=== PATIENT | female | born 1940 | race Caucasian/White ===

== ENCOUNTER 2025-01-30 14:14 | Inpatient (IN) | payer MEDICARE, SELFPAY ==
[2025-01-30] VITALS (15 sets, daily range): BP systolic 124–155; BP diastolic 71–89; PULSE 67–92; RESP 16–22; TEMP 36–36.6; O2SAT 88–98; BMI 24.8
--- NOTE | 2025-01-30 15:42 | CT_ITS ---
PROCEDURE: CTA CHEST W/WO CONTRAST 01/30/2025 REASON FOR EXAM: HYPOXIA AND DYSPNEA TECHNIQUE: CTA imaging of the chest with intravenous contrast. Coronal and Sagittal reconstruction series were provided. 3D, 3D post processing, 3D reconstructions, Maximum intensity projection (MIPs) Volume rendering and Shaded surface rendering was provided. One or more dose reduction techniques were used (e.g., Automated exposure control, adjustment of the mA and/or kV according to patient size, use of iterative reconstruction technique). COMPARISON: None FINDINGS: Heart size is toward the upper limits of normal. Mild LAD coronary artery calcifications. No significant pericardial effusion. Calcified nonaneurysmal thoracic aorta without dissection. Prominent central pulmonary artery which can be seen with pulmonary hypertension. No pulmonary artery filling defects. No bulky adenopathy. Large cystic lesion in the liver measuring at least 14.7 x 11.0 x 13.8 cm. Mild abdominal ascites. Elevated right hemidiaphragm. Heterogeneous multinodular right thyroid lobe. Central airways are patent. Large right pleural effusion with adjacent atelectasis. Small left pleural effusion with adjacent atelectasis. No pulmonary mass. No acute osseous abnormality. CT/CTA Chest W/WO Contrast IMPRESSION: 1. Negative for pulmonary embolism. 2. Large right and small left pleural effusions with adjacent atelectasis. 3. Borderline cardiomegaly. Coronary artery calcifications. 4. Prominent pulmonary artery which can be seen with pulmonary hypertension. 5. Large right hepatic cyst. Further assessment with nonemergent MRI is recomm ended given the lesions size. 6. Heterogeneous multinodular right thyroid lobe. Recommend further assessment with nonemergent ultrasound. 7. Mild upper abdominal ascites. Reading Location: [facility]
[2025-01-30 15:57] LABS: Absolute Lymphocyte Count 1.43 X10^3/uL (0.83-4.51); Absolute Neutrophil Count 5.9 X10^3/uL (2.0-7.7); Basophil# 0.06 X10^3/uL; Basophil% 0.7 % (0-1); Eosinophil# 0.07 X10^3/uL; Eosinophils% 0.8 % (0-5); Hematocrit 34.2 % (37-47); Lymphocyte # 1.43 X10^3/ul (0.83-4.51); Lymphocyte % 16.8 % (19-41); Mean Corp Hgb Conc 32.2 g/dL (32-36); Mean Corpuscular Hgb 26.4 pg (27.0-32.0); Mean Platelet Vol. 9.4 fl (6.2-12.0); Monocyte# 1.05 X10^3/uL; Monocyte% 12.3 % (0-10); NRBC Flagged by Analyzer 0 % (0-5); Neutrophil # 5.86 X10^3/uL (2.7-7.7); Neutrophil % 68.7 % (47-70); Platelet Count 334 K/mm3 (150-450); RBC Distribution Width CV 16.5 % (11.6-14.6); RBC Distribution Width SD 49.2 fl (35.1-43.9); Red Blood Count 4.17 M/mm3 (4.2-5.4); White Blood Count 8.5 K/mm3 (4.4-11.0)
[2025-01-30 16:17] LABS: D-Dimer Quantitative (DVT/PE) 3.43 FEU/ug/m (0.27-0.49)
[2025-01-30 16:21] LABS: Anion Gap 12 (5-15); BUN 15 mg/dL (4-19); BUN/Creat Ratio 17.2 RATIO (10-20); Calcium,Total 8.5 mg/dL (7.6-11.0); Carbon Dioxide 26.2 mmol/L (21.0-32.0); Chloride 103 mmol/L (98-108); Creatinine, Serum 0.85 mg/dL (0.70-1.20); EST Glomerular Filtration Rate 68 (>60); Glucose 126 mg/dL (70-99); Potassium 3.5 mmol/L (3.3-5.1); Sodium Level 141 mmol/L (133-145); Troponin T High Sensitivity 22 ng/L (<=14)
[2025-01-30 16:36] LABS: Pro- Brain NATRIURETIC PEPTIDE 629 pg/mL (<=1800)
--- NOTE | 2025-01-30 16:52 | ED.VIS.DYS ---
HPI History of Present Illness Chief Complaint: Shortness of Breath Informant: patient Onset/Context/Timing Onset: Weeks (Shortness of breath for 2 weeks. Worse with exertion.) Context: gradual Timing: Continuous Quality: Positive for Dyspnea on exertion Current Severity: Moderate Maximum Severity: Moderate Worsened by: Exertion Relieved by: Oxygen Associated Symptoms Negative for cough Chest Pain: Positive for None Narrative Narrative: 84-year-old female history of stroke in October she was hospitalized for 4 days. No history of COPD, asthma, CHF or DVT or PE. States she has been short of breath for the last 2 weeks worse with exertion. She presents hypoxia with a pulse ox of 80%. She denies any chest pain or fever. No significant cough. No leg pain or swelling. No calf pain. She was being seen by GI for a reported liver cyst that is pushing up on her right diaphragm in the center of the emergency department due to her hypoxia. PE Risk Factors: Negative for Cancer, OCP + Smoking + > 35, Prior DVT or PE, Recent immobilization, Recent surgery or Recent travel Prior similar symptoms: No Recent Illness/Hospitalization: No (Last hospitalization was at the end of October. 2-3 months ago.) [facility] Medical History Multinodular goiter Thyrotoxicosis CVA (cerebral vascular accident) Glaucoma Home Medications ?Medication ?Instructions ?Recorded ?Last Taken ?Type aspirin 81 mg tablet,delayed 81 mg PO QDAY 11/07/24 01/30/25 History release (Adult Low Dose Aspirin) cetirizine 10 mg tablet 10 mg PO QDAY PRN allergies 11/07/24 01/30/25 History clopidogrel 75 mg tablet 75 mg PO QDAY 11/07/24 01/30/25 History rosuvastatin 10 mg tablet 10 mg PO QHS 11/07/24 01/29/25 History methimazole 10 mg tablet 10 mg PO QDAY #90 tabs 01/09/25 01/30/25 Rx amlodipine 10 mg tablet 10 mg PO DAILY 01/30/25 01/30/25 History metoprolol tartrate 50 mg tablet 50 mg PO DAILY 01/30/25 01/30/25 History travoprost 0.004 % eye drops 1 drp ophthalmic (eye) DAILY 01/30/25 01/29/25 History Allergy/AdvReac Type Severity Reaction Status Date / Time Sulfa (Sulfonamide Allergy Mild hives Verified 01/30/25 14:16 Antibiotics) Family History Other Brain tumor Colon cancer Surgical History History of thyroid surgery H/O: hysterectomy Social History household members: spouse housing: house Smoking Status: Never smoker alcohol intake: never substance use type: does not use what type of physical activity do you participate in: walking frequency: daily ROS ROS ED ROS Narrative Denies recent illness. Shortness of breath worse with exertion. No cough or fever. No chest pain. Constitutional Constitutional ED: Denies chills or fever(s) Eyes Eyes: Denies blurry vision ENT ENT ED: Denies ear pain Cardiovascular Cardiovascular: Denies chest pain, palpitations or racing heartbeat Respiratory/Chest Respiratory/Chest: Reports dyspnea and dyspnea on exertion; Denies cough Gastrointestinal Gastrointestinal: Denies abdominal pain Genitourinary Genitourinary ED: Denies dysuria or hematuria Musculoskeletal Musculoskeletal: Denies arthralgias or back pain Integumentary Denies abscess Neurologic Neurologic: Denies headache(s) Psychiatric Psychiatric: Denies anxiety Endocrine Endocrinology: Denies cold intolerance Hematologic/Lymphatic Hematologic/Lymphatic: Denies easy bleeding, easy bruising or lymphadenopathy Allergic/Immunologic Allergic/Immunologic ED: Denies mouth swelling, tongue swelling or urticaria EXAM Physical Exam Narrative Exam Narrative: Well-appearing 84-year-old female sitting upright in bed. She is hypoxic at 88% on room air with a good waveform. No distress otherwise. Daughter and are at bedside. H EENT exam pupils round react light. Motions are intact. Moist mucous membranes. Neck nontender no JVD. No lymphadenopathy. Lungs clear to auscultation bilaterally. Heart regular rhythm rate about 85-90 no murmur. Chest wall ribs nontender. Abdomen soft nontender. No peritoneal signs. Moving all 4 extremities. Nontender no edema. Calves nontender. No cords. Normal strength. Normal range of motion. Neurologically she is awake alert. Answering questions and following commands. Very benign exam. Const Vital Signs: 01/30/25 14:16 01/30/25 14:24 01/30/25 15:02 Temperature 97.6 F L Temperature Source Temporal Pulse Rate 92 87 Respiratory Rate 22 H 18 Respiratory Effort Respiratory Depth Respiratory Pattern Blood Pressure 124/71 H 155/89 H Blood Pressure Mean 88 111 Pulse Ox 88 93 98 Oxygen Delivery Method Room Air Nasal Cannula Oxygen Flow Rate (L/min) 3 01/30/25 15:02 01/30/25 15:30 01/30/25 15:43 Temperature Temperature Source Pulse Rate 67 Respiratory Rate 18 Respiratory Effort Normal Short of Breath Respiratory Depth Normal Respiratory Pattern Normal Blood Pressure 143/81 H Blood Pressure Mean 101 Pulse Ox 93 Oxygen Delivery Method Nasal Cannula Nasal Cannula Nasal Cannula Oxygen Flow Rate (L/min) 2 2 2 01/30/25 16:00 01/30/25 16:30 Temperature Temperature Source Pulse Rate 78 71 Respiratory Rate 20 H 20 H Respiratory Effort Respiratory Depth Respiratory Pattern Blood Pressure 135/80 H 147/74 H Blood Pressure Mean 98 98 Pulse Ox 93 93 Oxygen Delivery Method Nasal Cannula Nasal Cannula Oxygen Flow Rate (L/min) 2 2 Positive well nourished and well developed; Negative for obese, cachectic, contractures or unkempt General Appearance ED: well developed and NAD; Negative for unkempt, cachectic, contractures or pallor Nutritional Appearance: Negative for cachectic or obese HEENT Reports moist mucous membranes atraumatic; Negative for trauma or tenderness Eyes PERRL and EOMs intact bilaterally General Eye ED: Negative for pale conjunctiva or scleral icterus Neck no lymphadenopathy, supple and no meningeal signs General: Negative for tenderness Lymph Lymphatic: Negative for other Resp normal respiratory effort and clear to auscultation bilaterally Effort and Inspection: Negative for pain with movement Auscultation: Negative for rales, rhonchi, wheezes or diminished lung sounds Cardio regular rate, regular rhythm, S1 normal heart sound, S2 normal heart sound and no murmurs Rate: Negative for bradycardia or tachycardic Rhythm: Negative for abnormal rhythm GI non-tender, non-distended and no masses Auscultation: normoactive bowel sounds Palpation: soft; Negative for tender, guarding, mass or rebound tenderness present Back/Spine no CVA tenderness and normal to inspection General Back: Negative for CVA tenderness Extremity normal to inspection General Extremety ED: Negative for edema or tenderness General Extremity: Negative for edema Neuro oriented x3 and CN's II-XII intact bilaterally Sensorium / Orientation: alert, oriented to person, oriented to place and oriented to time; Negative for orientation impaired, confused or lethargic Speech: speech normal Motor Exam: strength 5/5 throughout Psych mental status grossly normal Appearance: Negative for unkempt Attitude: No agitated Mood & Affect: Negative for depressed or anxious Thought Process: No normal thought process Skin no wounds and skin turgor normal General Skin Exam: Negative for jaundice or pallor Lesions: no lesions Rashes: no rashes Trauma: Negative for abrasion or laceration MDM MDM MDM Narrative Medical decision making narrative: 9-year-old female hypoxic sent in for further evaluation. Could be CHF could be a pulmonary emboli or pneumonia versus other etiologies. CAT scan of the chest and labs are being obtained. History & Record Review Discussion w/independent historian: Patient and Family Additional record(s) reviewed:: No prior records Lab Data Attestation: I reviewed the patient's lab results. Lab results narrative: CBC shows a white count 8.5. H&H 11.0 and 34. Platelets 334. Electrolytes show sodium 141. Gap 12. Normal BUN 15 creatinine 0.8. Glucose 126. Troponin 22. BNP 629. No prior labs available for comparison. Chest x-ray 2 views shows an elevated right hemidiaphragm. Bilateral pleural effusions. Cannot rule out pneumonia. Labs: Laboratory Results - last 24 hr 01/30/25 14:48 WBC 8.5 RBC 4.17 L Hgb 11.0 L Hct 34.2 L MCV 82.0 MCH 26.4 L MCHC 32.2 RDW Std Deviation 49.2 H RDW Coeff of Jacquie 16.5 H Plt Count 334 MPV 9.4 Immature Gran % (Auto) 0.700 Neut % (Auto) 68.7 Lymph % (Auto) 16.8 L [place] % (Auto) 12.3 H Eos % (Auto) 0.8 Baso % (Auto) 0.7 Absolute Neuts (auto) 5.9 Absolute Lymphs (auto) 1.43 Nucleated RBC % 0 D-Dimer Quant (PE/DVT) 3.43 H* Sodium 141 Potassium 3.5 Chloride 103 Carbon Dioxide 26.2 Anion Gap 12 BUN 15 Creatinine 0.85 Est GFR (MDRD) Non-Af 68 BUN/Creatinine Ratio 17.2 Glucose 126 H Calcium 8.5 Troponin T High Sens 22 H NT pro BNP II 629 Radiography Chest X-Ray - ED: 2 View, Read by ED Physician, Read by Radiologist, Heart, Lungs, Mediastinum, Bony Structures, Chronic Changes, Right Effusion, Left Effusion and - (Elevated right hemidiaphragm.) Diagnostic Testing: Clinical Impression(s) from Imaging Studies Chest CTA 01/30/25 15:42 IMPRESSION: 1. Negative for pulmonary embolism. 2. Large right and small left pleural effusions with adjacent atelectasis. 3. Borderline cardiomegaly. Coronary artery calcifications. 4. Prominent pulmonary artery which can be seen with pulmonary hypertension. 5. Large right hepatic cyst. Further assessment with nonemergent MRI is recommended given the lesions size. 6. Heterogeneous multinodular right thyroid lobe. Recommend further assessment with nonemergent ultrasound. 7. Mild upper abdominal ascites. [facility] Chest x-ray done earlier in the day. She has an elevated right hemidiaphragm. Small bilateral pleural effusions. Cannot rule out infiltrates. Interpreted both by myself and the radiologist. 2 views. Rhythm Strip Rhythm Strip: Sinus Rhythm Rate: 89 Ectopy: PAC(s) EKG Initial EKG: Attestation: I personally reviewed and interpreted this EKG as follows: Interpretation: Sinus Rhythm and No Acute Injury Pattern Comments: Normal sinus rhythm rate 89. Few PACs. No acute signs of DE. Mild ST depression in the lateral leads. No prior available. Prior EKG tracings: not available for review Discharge Plan Triage Chief Complaint: Shortness of Breath ED Provider: Will Jaimes Dx/Rx/DC Orders Prescriptions: No Action clopidogrel 75 mg tablet 75 mg PO QDAY cetirizine 10 mg tablet 10 mg PO QDAY PRN (Reason: allergies) rosuvastatin 10 mg tablet 10 mg PO QHS aspirin [Adult Low Dose Aspirin] 81 mg tablet,delayed release (DR/EC) 81 mg PO QDAY methimazole 10 mg tablet 10 mg PO QDAY Qty: 90 2RF travoprost 0.004 % drops 1 drp ophthalmic (eye) DAILY Patient Comments: [NO ORIGINAL SIG] Rx Instructions: PM amlodipine 10 mg tablet 10 mg PO DAILY metoprolol tartrate 50 mg tablet 50 mg PO DAILY Patient Comments: [NO ORIGINAL SIG] Primary Care Provider: Fidel Davila Referrals: Fidel Davila MD [Primary Care Provider] - Print Language: Maltese
--- NOTE | 2025-01-30 17:54 | PCM.HP.STD ---
HPI - General General Date of Admission: 01/30/25 Date of Service: 01/30/25 Chief Complaint: Shortness of breath and hypoxia HPI Narrative SAPNA SAUCEDO, is a 84-year-old female with a history of CVA, hypertension, thyrotoxicosis with multinodular goiter who presented to [facility] ED 01/30/2025 with increased shortness of breath for the past 2 weeks which has been worse with exertion. Patient is being worked up for right hepatic cyst that is pushing on her diaphragm and it was assumed that this was the reason for her shortness of breath however today she was hypoxic at the GI office so she was sent to the ED. Patient was 88% on presentation and placed on 2 L of O2, hemoglobin of 11, D-dimer of 3.43 and BMP fairly unremarkable, proBNP 629 with a Trop of 22. CTA obtained with no PE but large right and small left pleural effusions with adjacent atelectasis and prominent pulmonary artery possibly due to pulmonary hypertension. Given patient's hypoxia and effusions hospitalist contacted for admission. Patient evaluated family members at bedside, she notes that she had a stroke in October and was having some difficulty with speech which prompted an ultrasound of her thyroid even though she has had her thyroid removed, this revealed toxic multinodular goiter and she was referred to endocrinology. Aside from that she has been worked up for a hepatic cyst with the next step being MRI to decide on drainage versus surgery but has not had this completed yet. Does endorse increased shortness of breath for the past 2 weeks with no productive cough or chest pain, no abdominal pain or swelling, has had a little bit of swelling in her lower extremities mostly in the evening over the past week or so, no fevers or chills. [facility] Medical History Multinodular goiter Thyrotoxicosis CVA (cerebral vascular accident) Glaucoma Home Medications ?Medication ?Instructions ?Recorded ?Last Taken ?Type aspirin 81 mg tablet,delayed 81 mg PO QDAY 11/07/24 01/30/25 History release (Adult Low Dose Aspirin) cetirizine 10 mg tablet 10 mg PO QDAY PRN allergies 11/07/24 01/30/25 History clopidogrel 75 mg tablet 75 mg PO QDAY 11/07/24 01/30/25 History rosuvastatin 10 mg tablet 10 mg PO QHS 11/07/24 01/29/25 History methimazole 10 mg tablet 10 mg PO QDAY #90 tabs 01/09/25 01/30/25 Rx amlodipine 10 mg tablet 10 mg PO DAILY 01/30/25 01/30/25 History metoprolol tartrate 50 mg tablet 50 mg PO DAILY 01/30/25 01/30/25 History travoprost 0.004 % eye drops 1 drp ophthalmic (eye) DAILY 01/30/25 01/29/25 History Allergy/AdvReac Type Severity Reaction Status Date / Time Sulfa (Sulfonamide Allergy Mild hives Verified 01/30/25 14:16 Antibiotics) Family History Other Brain tumor Colon cancer Surgical History History of thyroid surgery H/O: hysterectomy Social History household members: spouse housing: house Smoking Status: Never smoker alcohol intake: never substance use type: does not use what type of physical activity do you participate in: walking frequency: daily ROS ROS Narrative General: Denies fever/chills HENT: Denies headache, denies stuffy nose, denies sore throat EYES: Denies changes in vision Resp: Denies cough, increased shortness of breath particularly on exertion over the past couple of weeks Cardiac: Denies chest pain GI: Denies abdominal pain, denies changes in bowel, denies nausea/vomiting : Denies changes in urination Extremity: Some swelling lower extremities mostly in the evening the past week or so MSK: Denies weakness Neuro: Denies any numbness/tingling Heme: Denies any bleeding or bruising Skin: Denies rashes Psychiatric: No complaints voiced Vital Signs Vital Signs Vital Signs: 01/30/25 14:16 01/30/25 14:24 01/30/25 15:02 Temperature 97.6 F L Temperature Source Temporal Pulse Rate 92 87 Respiratory Rate 22 H 18 Respiratory Effort Respiratory Depth Respiratory Pattern Blood Pressure 124/71 H 155/89 H Blood Pressure Mean 88 111 Pulse Ox 88 93 98 Oxygen Delivery Method Room Air Nasal Cannula Oxygen Flow Rate (L/min) 3 01/30/25 15:02 01/30/25 15:30 01/30/25 15:43 Temperature Temperature Source Pulse Rate 67 Respiratory Rate 18 Respiratory Effort Normal Short of Breath Respiratory Depth Normal Respiratory Pattern Normal Blood Pressure 143/81 H Blood Pressure Mean 101 Pulse Ox 93 Oxygen Delivery Method Nasal Cannula Nasal Cannula Nasal Cannula Oxygen Flow Rate (L/min) 2 2 2 01/30/25 16:00 01/30/25 16:30 01/30/25 17:00 Temperature Temperature Source Pulse Rate 78 71 72 Respiratory Rate 20 H 20 H 18 Respiratory Effort Respiratory Depth Respiratory Pattern Blood Pressure 135/80 H 147/74 H 147/81 H Blood Pressure Mean 98 98 103 Pulse Ox 93 93 93 Oxygen Delivery Method Nasal Cannula Nasal Cannula Nasal Cannula Oxygen Flow Rate (L/min) 2 2 2 01/30/25 17:03 01/30/25 17:30 Temperature 98 F Temperature Source Pulse Rate 72 73 Respiratory Rate 18 20 H Respiratory Effort Respiratory Depth Respiratory Pattern Blood Pressure 147/81 H 142/78 H Blood Pressure Mean 103 99 Pulse Ox 93 93 Oxygen Delivery Method Nasal Cannula Oxygen Flow Rate (L/min) 2 Physical Exam Narrative General: Alert, oriented, no apparent distress HEENT: Atraumatic, normocephalic Eyes: Anicteric, normal conjunctiva, extraocular movements grossly intact Neck: Supple Respiratory: Normal respiratory effort diminished at the bases bilaterally Cardiovascular: Regular rate and rhythm GI: Soft, nontender with very mild distention Extremities: 1+ bilateral lower extremity edema Musculoskeletal: Moving all extremities Neuro: No overt focal neurological deficits Skin: No rashes appreciated Psych: Cooperative Results Lab / Micro Data 01/30/25 14:48 01/30/25 14:48 Labs: Laboratory Results - last 24 hr 01/30/25 14:48: WBC 8.5, RBC 4.17 L, Hgb 11.0 L, Hct 34.2 L, MCV 82.0, MCH 26.4 L, MCHC 32.2, RDW Std Deviation 49.2 H, RDW Coeff of Jacquie 16.5 H, Plt Count 334, MPV 9.4, Immature Gran % (Auto) 0.700, Neut % (Auto) 68.7, Lymph % (Auto) 16.8 L, [place] % (Auto) 12.3 H, Eos % (Auto) 0.8, Baso % (Auto) 0.7, Absolute Neuts (auto) 5.9, Absolute Lymphs (auto) 1.43, Nucleated RBC % 0, D-Dimer Quant (PE/DVT) 3.43 H*, Sodium 141, Potassium 3.5, Chloride 103, Carbon Dioxide 26.2, Anion Gap 12, BUN 15, Creatinine 0.85, Est GFR (MDRD) Non-Af 68, BUN/Creatinine Ratio 17.2, Glucose 126 H, Calcium 8.5, Troponin T High Sens 22 H, NT pro BNP II 629 Rhythm Strip Rhythm Strip: Sinus Rhythm Rate: 89 Ectopy: PAC(s) Imaging Radiology Impression Chest CTA 01/30/25 15:42 IMPRESSION: 1. Negative for pulmonary embolism. 2. Large right and small left pleural effusions with adjacent atelectasis. 3. Borderline cardiomegaly. Coronary artery calcifications. 4. Prominent pulmonary artery which can be seen with pulmonary hypertension. 5. Large right hepatic cyst. Further assessment with nonemergent MRI is recommended given the lesions size. 6. Heterogeneous multinodular right thyroid lobe. Recommend further assessment with nonemergent ultrasound. 7. Mild upper abdominal ascites. Reading Location: [facility] Assessment & Plan Assessment/Plan (1) Hypoxia: PLAN: Plan # Hypoxia secondary to pleural effusions - Pro BNP 629 -Pleural effusion very large on the right greater than left -Unclear etiology, will order diagnostic and therapeutic thoracentesis for right side -Also check echo -Low threshold for pulmonary consult if needed - Intake and output, daily weights - Incentive spirometer #Right heptic cyst - Being followed by GI on outpatient basis - Patient to have MRI in the future to decide if cyst can be drained or if she needs surgical intervention # Thyrotoxicosis with multinodular goiter -Patient had her thyroid removed many years ago and was found in October to have a TSH of 0 and recurrence of her multinodular goiter -Now following with endocrinology -Will check thyroid labs given patient very cold and now has diffuse swelling - Continue methimazole - Patient has been referred to surgery for an FNA which is scheduled on an outpatient basis #Hypertension - Continue home medications # Recent CVA - Continue home medications #DVT ppx: KOKOs Katherine Madrigal MD Time spent in the patient's overall evaluation, decision-making process, review of diagnostic data, adjustment of management, discussion with other providers, nursing and ancillary staff involved in patient's care documentation, 57 Minutes Charges/Coding Visit Charges Inpatient E&M: 73727 Init Hosp L2
--- NOTE | 2025-01-30 18:24 | US_ITS ---
EXAM: Ultrasound-guided right thoracentesis. CLINICAL HISTORY: Right pleural effusion. COMPARISON: None TECHNIQUE: The procedure as well as the benefits and possible complications were explained to the patient. Informed consent was obtained. The overlying skin was prepped and draped in the usual sterile fashion. Following local anesthetic application, a 5 [place] catheter was placed into the right pleural space. 830 cc of donna colored fluid was aspirated. The patient tolerated the procedure well. FINDINGS: Successful ultrasound-guided right thoracentesis. US/Thoracentesis W US IMPRESSION: Successful ultrasound-guided right thoracentesis with removal of 830 cc of ambe r colored fluid. The patient tolerated the procedure well. No immediate complication seen. Reading Location: [facility]
--- NOTE | 2025-01-30 18:24 | ECHOD_ITS ---
Reason For Study Reason For Study: Other Procedure This was a 2D Doppler, Color Flow transthoracic echocardiogram. The study was technically difficult. Exam performed portable in patient room. Left Ventricle Normal LV size. Left ventricular systolic function is normal. The left ventricular ejection fraction is 55 %. Stage 1 diastolic dysfunction. No regional wall motion abnormalities noted. Right Ventricle Normal RV size. Normal systolic function. Atria The left atrium is mildly enlarged. Normal right atrium. Mitral Valve There is mild mitral annular calcification. Mild (1+) eccentric mitral valve insufficiency. Tricuspid Valve Normal tricuspid valve. Mild to moderate (1-2+) tricuspid valve insufficiency. Pulmonary artery systolic pressure is 52 mmHg. Aortic Valve Trisinus/trileaflet aortic valve. Pulmonic Valve Normal pulmonic valve. Great Vessels Normal aortic root. Pericardium/Pleural Trivial pericardial effusion. MMode/2D Measurements & Calculations LVIDd: 4.9 cm IVSd: 1.2 cm Ao root diam: 3.2 cm LVIDs: 3.0 cm LVPWd: 1.1 cm RVDd: 4.0 cm FS: 39.6 % LAV(MOD-bp): 62.6 ml LVAd ap4: 20.9 cm2 SV(MOD-sp4): 28.3 ml LAV(MOD-bp) Indexed: 39.3 ml/m2 LVLd ap4: 6.4 cm SI(MOD-sp4): 17.8 ml/m2 LAV(MOD-sp2): 50.6 ml EDV(MOD-sp4): 56.6 ml LAV(MOD-sp4): 72.2 ml EDV(sp4-el): 57.9 ml LVAs ap4: 13.5 cm2 LVLs ap4: 5.6 cm ESV(MOD-sp4): 28.3 ml ESV(sp4-el): 27.4 ml EF(MOD-sp4): 50.0 % EF(sp4-el): 52.7 % SV(sp4-el): 30.5 ml LA A4 area: 22.4 cm2 LA dimension(2D): 4.5 cm RA A4 area: 14.4 cm2 TAPSE: 1.7 cm Time Measurements MV dec time: 0.20 sec Doppler Measurements & Calculations MV E max howie: 91.0 cm/sec Lat Peak E' Howie: 6.3 cm/sec Med Peak E' Howie: 6.8 cm/sec MV A max howie: 95.9 cm/sec E/E' lat: 14.5 E/E' med: 13.3 MV E/A: 0.95 MV V2 max: 119.8 cm/sec MV P1/2t max howei: 121.0 cm/sec Ao V2 max: 181.9 cm/sec MV max P.7 mmHg MV P1/2t: 66.0 msec Ao max P.2 mmHg MV V2 mean: 71.6 cm/sec Ao V2 mean: 133.3 cm/sec MV mean P.5 mmHg MV dec slope: 537.1 cm/sec2 Ao mean P.0 mmHg MV V2 VTI: 26.6 cm MVA(P1/2t): 3.3 cm2 Ao V2 VTI: 39.2 cm AV (velocity ratio): 0.66 LV V1 max: 118.0 cm/sec PA V2 max: 124.5 cm/sec TR max howie: 346.3 cm/sec LV V1 max P.6 mmHg TR max P.0 mmHg LV V1 mean P.6 mmHg LV V1 mean: 90.7 cm/sec LV V1 VTI: 25.9 cm ECHO/Echo Complete Interpretation Summary Normal LV size. Left ventricular systolic function is normal. Mild (1+) eccentric mitral valve insufficiency. The left ventricular ejection fraction is 55 %. The left atrium is mildly enlarged. Stage 1 diastolic dysfunction. Ordering Physician: Katherine Madrigal Performed By: Ryan Rosen RCS
[2025-01-30] MEDS: Metoprolol Tartrate 25 MG Tablet PO (21:22)
[2025-01-30] MEDS: Atorvastatin Calcium 20 MG Tablet PO (21:22)
[2025-01-31] VITALS (12 sets, daily range): BP systolic 120–164; BP diastolic 73–100; PULSE 80–96; RESP 16–18; TEMP 36.3–37.3; O2SAT 92–96; BMI 25.4
[2025-01-31 01:20] LABS: Absolute Lymphocyte Count 1.23 X10^3/uL (0.83-4.51); Basophil# 0.04 X10^3/uL; Basophil% 0.6 % (0-1); Eosinophil# 0.16 X10^3/uL; Eosinophils% 2.5 % (0-5); Hematocrit 31.8 % (37-47); Hemoglobin 9.8 g/dL (12.0-15.0); Lymphocyte # 1.23 X10^3/ul (0.83-4.51); Lymphocyte % 19.2 % (19-41); Mean Corp Hgb Conc 30.8 g/dL (32-36); Mean Corpuscular Hgb 26.1 pg (27.0-32.0); Mean Corpuscular Volume 84.8 fL (81-99); Monocyte% 15.6 % (0-10); NRBC Flagged by Analyzer 0 % (0-5); Neutrophil # 3.95 X10^3/uL (2.7-7.7); Neutrophil % 61.6 % (47-70); Platelet Count 260 K/mm3 (150-450); RBC Distribution Width CV 16.7 % (11.6-14.6); RBC Distribution Width SD 51.5 fl (35.1-43.9); Red Blood Count 3.75 M/mm3 (4.2-5.4); White Blood Count 6.4 K/mm3 (4.4-11.0)
[2025-01-31 01:57] LABS: Phosphorus 3.2 mg/dL (2.7-4.5)
[2025-01-31 02:19] LABS: AST(SGOT) 28 U/L (<=31); Alanine Aminotransfer ALT/SGPT 34 U/L (<=34); Albumin, Serum 2.9 g/dL (3.4-4.8); Alkaline Phosphatase 124 U/L (35-104); Anion Gap 11 (5-15); BUN 14 mg/dL (4-19); BUN/Creat Ratio 17.9 RATIO (10-20); Carbon Dioxide 25.6 mmol/L (21.0-32.0); Chloride 106 mmol/L (98-108); Creatinine, Serum 0.79 mg/dL (0.70-1.20); EST Glomerular Filtration Rate 74 (>60); Estimated Creatinine Clearance 44.21 ml/min (50-250); Free T3 2.1 pg/mL (2.18-3.98); Globulin 2.8 g/dL (2.2-4.2); Glucose 118 mg/dL (70-99); LDH 206 U/L (84-246); Potassium 3.6 mmol/L (3.3-5.1); Protein, Total 5.7 g/dL (5.9-8.4); Sodium Level 143 mmol/L (133-145); Thyroid Stim Hormone (TSH) 0.031 uIU/mL (0.300-4.200); Total Bilirubin 0.25 mg/dL (0.00-1.30)
--- NOTE | 2025-01-31 08:49 | PN.HOSP_ITS ---
Reason for Visit Reason for Visit: Shortness of breath Subjective Subjective Patient is complaining of a little bit of pain in her back where the thoracentesis was performed but overall her breathing is better. We did talk about her using the incentive spirometer and Acapella through the night to encourage opening up her lungs base Objective Data Objective Data Vital Signs: Vital Signs Temp Pulse Resp BP Pulse Ox O2 Del Method O2 Flow Rate 98.5 F 86 18 149/75 H 94 Nasal Cannula 7 01/31/25 08:20 01/31/25 08:20 01/31/25 08:20 01/31/25 08:20 01/31/25 08:20 01/31/25 08:20 01/31/25 08:20 Oxygen Flow Rate (L/min) 7 Oxygen Delivery Method Nasal Cannula Weight: 61.2 kg Body Mass Index (BMI) 25.4 Intake & Output: Intake and Output for Last 24 Hours 01/29/25 01/30/25 01/31/25 23:59 23:59 23:59 Intake Total 400 / 400 Balance 400 / 400 Lab / Micro Data 01/31/25 01:13 01/31/25 01:13 Labs: Laboratory Results - last 24 hr 01/30/25 14:48: WBC 8.5, RBC 4.17 L, Hgb 11.0 L, Hct 34.2 L, MCV 82.0, MCH 26.4 L, MCHC 32.2, RDW Std Deviation 49.2 H, RDW Coeff of Jacquie 16.5 H, Plt Count 334, MPV 9.4, Immature Gran % (Auto) 0.700, Neut % (Auto) 68.7, Lymph % (Auto) 16.8 L , [place] % (Auto) 12.3 H, Eos % (Auto) 0.8, Baso % (Auto) 0.7, Absolute Neuts (auto) 5.9, Absolute Lymphs (auto) 1.43, Nucleated RBC % 0, D-Dimer Quant (PE/DVT) 3.43 H*, Sodium 141, Potassium 3.5, Chloride 103, Carbon Dioxide 26.2, Anion Gap 12, BUN 15, Creatinine 0.85, Est GFR (MDRD) Non-Af 68, BUN/Creatinine Ratio 17.2, Glucose 126 H, Calcium 8.5, Troponin T High Sens 22 H, NT pro BNP II 629 01/31/25 01:13: WBC 6.4, RBC 3.75 L, Hgb 9.8 L, Hct 31.8 L, MCV 84.8, MCH 26.1 L , MCHC 30.8 L, RDW Std Deviation 51.5 H, RDW Coeff of Jacquie 16.7 H, Plt Count 260, MPV 9.0, Immature Gran % (Auto) 0.500, Neut % (Auto) 61.6, Lymph % (Auto) 19.2, [place] % (Auto) 15.6 H, Eos % (Auto) 2.5, Baso % (Auto) 0.6, Absolute Neuts (auto) 4.0, Absolute Lymphs (auto) 1.23, Nucleated RBC % 0, Sodium 143, Potassium 3.6, Chloride 106, Carbon Dioxide 25.6, Anion Gap 11, BUN 14, Creatinine 0.79, Estim Creat Clear Calc 44.21 L, Est GFR (MDRD) Non-Af 74, BUN/Creatinine Ratio 17.9, G lucose 118 H, Calcium 8.0, Phosphorus 3.2, Magnesium 2.0, Total Bilirubin 0.25, AST 28, ALT 34, Alkaline Phosphatase 124 H, Lactate Dehydrogenase 206, Total Protein 5.7 L, Albumin 2.9 L, Globulin 2.8, Albumin/Globulin Ratio 1.0, TSH 0.031 L, Free T4 1.00, Free T3 pg/dL 2.1 L Radiography Diagnostic Testing: Radiology Impression Chest CTA 01/30/25 15:42 IMPRESSION: 1. Negative for pulmonary embolism. 2. Large right and small left pleural effusions with adjacent atelectasis. 3. Borderline cardiomegaly. Coronary artery calcifications. 4. Prominent pulmonary artery which can be seen with pulmonary hypertension. 5. Large right hepatic cyst. Further assessment with nonemergent MRI is recommended given the lesions size. 6. Heterogeneous multinodular right thyroid lobe. Recommend further assessment with nonemergent ultrasound. 7. Mild upper abdominal ascites. Reading [facility] Rhythm Strip Rhythm Strip: Sinus Rhythm Rate: 89 Ectopy: PAC(s) Physical Exam Const alert, oriented x3, no apparent distress and well nourished Constitutional Narrative: Thin, elderly, white female, sitting up in bed, appears comfortable, nontoxic, multiple family members at bedside HEENT head/scalp atraumatic and moist oral mucous membranes Head and Scalp: normocephalic Neck supple Neck Narrative: Trachea midline Resp normal respiratory effort, no retractions, no use of accessory muscles and No clear to auscultation bilaterally Resp Narrative: Slightly diminished in the right lower lobe, crackles noted with inspiratory Tory effort in the right lower lobe, left side clear Auscultation: crackles; Negative for rhonchi or wheezes Cardio regular rate, regular rhythm, S1 normal heart sound, S2 normal heart sound, no murmurs, no rub, no gallops and no clicks GI normal to inspection, nondistended, normoactive bowel sounds, soft to palpation and non-tender Extremity Extremity Narrative: Trace bilateral lower extremity edema, no cyanosis or clubbing, pedal pulses are 2+, radial pulses are 2+ Neuro oriented x3, moves all extremities and no focal motor deficits Speech: speech normal Psych affect normal Psych Narrative: Pleasant, interacts appropriately Assessment & Plan Assessment/Plan (1) Bilateral pleural effusion: (2) Hypoxia: (3) Acute dyspnea: PLAN: Plan Hypoxia - Improved status post thoracentesis on the right - Was requiring 6 L now on room air - Continue incentive spirometry - Continue Acapella - Will check ambulatory pulse ox in a.m. Large right pleural effusion/small left pleural effusion - Fluid studies appear to be benign -Patient with no infectious type symptoms - Await finalized studies and check light criteria but do suspect transudative and likely related to large hepatic cysts - We did discuss that this may recur - Will give Lasix 40 mg IV x 1 dose -Recheck CT without contrast in a.m. - Patient may need to go home on some low-dose Lasix that she does have some ascites as well is likely related to that large hepatic cyst Large right hepatic cyst - Following with GI - Patient does have MRI pending to decide on treatment of cyst - Suspect may be the nidus for her effusion and ascites Thyrotoxicosis with multinodular goiter -Patient had her thyroid removed many years ago and was found in October to have a TSH of 0 and recurrence of her multinodular goiter -Now following with endocrinology -Continue methimazole -Continue beta-hans - TSH is low with a normal free T4 and a slightly abnormal free T3 -Patient has upcoming follow-up with Dr. Paris -Biopsy with Dr. Mccormick is pending soon Essential hypertension/hyperlipidemia - Continue home statin - Continue home amlodipine - Continue home metoprolol History of stroke - Continue home aspirin and Plavix Seasonal allergies - Continue home cetirizine Glaucoma - Continue home eyedrops DVT prophylaxis - SCDs CODE STATUS - Full code Charges/Coding Visit Charges Inpatient E&M: 58069 Subs Hosp L2
[2025-01-31] MEDS: Metoprolol Tartrate 25 MG Tablet PO ×2 (09:19→21:10)
[2025-01-31] MEDS: Methimazole 5 MG Tablet 10 MG PO (09:19)
[2025-01-31] MEDS: amLODIPine 10 MG Tablet PO (09:19)
[2025-01-31] MEDS: Lidocaine 2% (20 ml mdv) 20 ML Vial INFILT (14:10)
--- NOTE | 2025-01-31 14:11 | FLU_PTH ---
PATIENT: SAPNA SAUCEDO LOC: [facility] U#:[id number] AGE/SX: 84/F ROOM: [facility] RE01/30/[address]: Dr. Ramonita Sandoval DO : 1940 BED: 1 DIS: 02/02/2025 SPEC #: [id number] RECD: 01/31/25 14:27 STATUS: EJ REQ #: [id number] JLUIS: 01/31/25 14:[address]: Ramonita Sandoval DEPT: CYTOLOGY RECD BY: Kristine Sanders ENTERED: 02/01/25 07:41 SP TYPE: Fluid OTHR DR: MD Dr. Fidel Nicholson MD Tissues: THORACIC FLUID Procedures: Special Stain Group II Surgery Specimen Level IV Cytospin Fluid HEADER OPERATION: Ultrasound guided thoracentesis - right PRE-OP DIAGNOSIS: Pleural effusions TISSUE SUBMITTED: A- Thoracentesis fluid for cytology DIAGNOSIS CYTOLOGY A. Pleural fluid, right: * No malignant cells are identified CYTOLOGY STUDY Slides are reviewed. CYTOLOGY GROSS A. Received is 85 ml of yellow-cloudy fluid labeled with the patient's name and and designated per the requisition as Thoracentesis fluid. Submitted for cytology and cell block preparation. Mr 02/01/2025 CPT: 84917
--- NOTE | 2025-01-31 14:20 | RAD_ITS ---
EXAM: Chest AP inspiration expiration views CLINICAL HISTORY: Status post right thoracentesis. COMPARISON: Prior study dated January 30, 2025. TECHNIQUE: AP inspiration expiration views were obtained. FINDINGS: Stable elevation of the right hemidiaphragm. No evidence of pneumothorax following the right thoracentesis. Mild residual bilateral pleural-parenchymal changes worse on the left side. RAD/Chest Insp/Exp 2 View IMPRESSION: Status post right thoracentesis. No evidence of pneumothorax. Reading Location: [facility]
[2025-01-31 14:54] LABS: Cytology, Body Fluid / CSF SEE PATHOLOGY REPORT
--- NOTE | 2025-01-31 15:13 | CASEMGMT ---
FORREST REYES Assessment Face to Face with patient for initial transition planning/care coordination assessment. FORREST REYES introduced self and role at [facility], pt voices understanding. Pt is A&Ox4 and is resting comfortably in bed and is calm. Pt and family at bedside. Care providers, pharmacy, and demographics verified. Admitting dx: Hypoxia and pleural effusions LACE Strata: 1 PCP:Fidel Davila Specialists: (Endocrinology), Eladia SPICER Preferred Pharmacy: [facility] Insurance: [employer] [facility] Prescription Benefit: Yes LNOK: Ty Dial (H), Zeynep Jimenez (Daughter) Living Arrangements: Pt lives with her in a single story home with a basement. Pt states that she mainly uses the flight of steps (with handrails) from the basement to enter her home normally. Pt denies issues. ADLs/IADLs: Pt states that she is independent. 6-Click score is 24. Transportation: Self, . denies concerns DME: Access to a cane, BP Machine, Pulse ox, grab bars, and shower chair. Pt is currently requiring additional oxygen and may qualify for home oxygen use. A verbal list of local in-network DME companies were provided to the pt at this time. Pt prefers [facility] HHC/SNF: Denies hx or needs Pt?s goal: Home Plan: home no needs e/f potentially new oxygen. Pt states that she feels safe returning home with her once she is medically ready and denies the need for OP therapy or any further resources. Pt and pt family declines any questions or concerns at this time. Report given to ANIMAL FEEDER CM. Myra Garcia RN, CM
[2025-01-31] MEDS: Aspirin E.C. 81 MG Tablet PO (15:24)
[2025-01-31] MEDS: Clopidogrel Bisulfate 75 MG Tablet PO (15:24)
[2025-01-31 15:28] LABS: Body Fluid Mononuclear WBC # 0.865 10^3/uL; Body Fluid Polynuclear WBC # 0.107 10^3/uL; Body Fluid Total Cells Counted 1.014 10^3/ul; Red Cell Count/Body Fluid 0.003 10^6/ul; White Blood Count/Body Fluid 0.972 10^3/uL
[2025-01-31] MEDS: Acetaminophen 325 MG Tablet 650 MG PO (16:28)
[2025-01-31 17:09] LABS: Appearance/Body Fluid SL CLDY; Auto B Fluid Analyzer BKGD Ct COUNTS W/IN LIMITS (W/IN LIMITS); Color/Body Fluid YELLOW; Source- Body Fluid PLEURAL FLUID
[2025-01-31 18:00] LABS: Body Fluid QC Type(s) BF4Q
[2025-01-31 18:10] LABS: Lymphocytes 67 %; Macrophages 5 %; Mesothelial Cells 7 %; Neutrophil (Segs) 20 %; Other Cell Type/BF 1 %
[2025-01-31 18:17] LABS: LDH,Body Fluid 214 Units/L (Not Establ.); Protein, Body Fluid 3.5 g/dL (Not Establ.)
[2025-01-31 18:29] LABS: Glucose, Body Fluid 131 mg/dL (Not Establ.)
[2025-01-31] MEDS: Furosemide 40 MG/4 ML Vial IV (21:09)
[2025-01-31] MEDS: Latanoprost 0.005% 1 Bottle 1 DRP OPHTHALMIC (21:10)
[2025-01-31] MEDS: Atorvastatin Calcium 20 MG Tablet PO (21:10)
[2025-02-01] VITALS (11 sets, daily range): BP systolic 132–139; BP diastolic 73–86; PULSE 82–93; RESP 16–18; TEMP 36.2–36.8; O2SAT 88–96; BMI 25.4
[2025-02-01] MEDS: Acetaminophen 325 MG Tablet 650 MG PO (00:03)
[2025-02-01 05:08] LABS: Hematocrit 33.8 % (37-47); Hemoglobin 10.5 g/dL (12.0-15.0); Mean Corp Hgb Conc 31.1 g/dL (32-36); Mean Corpuscular Hgb 26.1 pg (27.0-32.0); Mean Corpuscular Volume 83.9 fL (81-99); Mean Platelet Vol. 9.3 fl (6.2-12.0); Platelet Count 271 K/mm3 (150-450); RBC Distribution Width CV 16.4 % (11.6-14.6); RBC Distribution Width SD 50.6 fl (35.1-43.9); Red Blood Count 4.03 M/mm3 (4.2-5.4); White Blood Count 7.6 K/mm3 (4.4-11.0)
[2025-02-01 05:15] LABS: Anion Gap 10 (5-15); BUN 14 mg/dL (4-19); BUN/Creat Ratio 18.5 RATIO (10-20); Calcium,Total 8.3 mg/dL (7.6-11.0); Carbon Dioxide 26.4 mmol/L (21.0-32.0); Chloride 102 mmol/L (98-108); Creatinine, Serum 0.74 mg/dL (0.70-1.20); EST Glomerular Filtration Rate 81 (>60); Estimated Creatinine Clearance 44.65 ml/min (50-250); Glucose 110 mg/dL (70-99); Potassium 3.6 mmol/L (3.3-5.1); Sodium Level 139 mmol/L (133-145)
--- NOTE | 2025-02-01 07:16 | CT_ITS ---
PROCEDURE: CHEST WITHOUT CONTRAST 02/01/2025 REASON FOR EXAM: R EFFUSION TECHNIQUE: Chest CT without contrast. Coronal and Sagittal reconstruction series were provided. One or more dose reduction techniques were used (e.g., Automated exposure control, adjustment of the mA and/or kV according to patient size, use of iterative reconstruction technique RADIATION DOSE SUMMARY: CTDlvol: 8.5 mGy DLP: 298.07 mGycm COMPARISON: Comparison is made with prior study dated January 30, 2025. FINDINGS: Diffuse heterogeneous enlargement of the right lobe of the thyroid gland with the substernal extension and mass effect on the right side of the trachea. Lymph nodes: Small benign-appearing mediastinal lymph nodes. Heart and Vasculature: Cardiomegaly. No pericardial effusion. Atherosclerotic calcifications of the thoracic aorta. Thoracic aorta and pulmonary arteries have normal contours; noncontrast technique limits evaluation. Coronary Artery Calcifications: Present Lungs and Airways: Persistent small right pleural effusion with compressive atelectasis at the right lung base. Minimal left pleural effusion with left basilar atelectasis. Upper Abdomen: Stable 15.7 cm x 11.6 cm cyst in the right lobe of the liver. Bones: Degenerative changes of the thoracic spine. CT/Chest without Contrast IMPRESSION: Coronary artery calcification (CAC) is is present Small residual right pleural effusion with compressive atelectasis at the right lung base. Minimal left pleural effusion with mild left basilar atelectasis. Stable multinodular goiter is enlargement of the right lobe of the thyroid with say substernal extension. Reading Location: [place] [address]
[2025-02-01] MEDS: Clopidogrel Bisulfate 75 MG Tablet PO (10:03)
[2025-02-01] MEDS: Metoprolol Tartrate 25 MG Tablet PO ×2 (10:03→21:24)
[2025-02-01] MEDS: Methimazole 5 MG Tablet 10 MG PO (10:03)
[2025-02-01] MEDS: amLODIPine 10 MG Tablet PO (10:03)
[2025-02-01] MEDS: Aspirin E.C. 81 MG Tablet PO (10:13)
--- NOTE | 2025-02-01 10:52 | CASEMGMT ---
FORREST REYES NOTE: Per Dr Sandoval, pt to discharge home today. Home amb O2 testing has been completed. Pt qualifies for O2 @ 2 l/m continuously. RN ERIC to room. Introduced self and role. Pt aware she will be dc'ing home on O2 and is aware she is to wear it @ 2 l/m continuously. DC plan has been updated. Pt verifies she has a pulse ox @ home. She denies having any discharge needs or concerns. Family will be taking her home. Script for O2 obtained from Dr Sandoval and sent to Faisal via [employer]. Faisal Soto liaison, @ bedside at this time delivering portable O2 tank and going over home O2 set-up process. Kamla RODRIGUEZ RN CM
--- NOTE | 2025-02-01 11:55 | CT_ITS ---
PROCEDURE: ABDOMEN/PELVIS W IV CONT ONLY 02/01/2025 REASON FOR EXAM: HEPATIC CYST TECHNIQUE: Abdomen and pelvis CT with intravenous contrast. Coronal and Sagittal reconstruction series were provided. PATIENT PREPARATION: Per protocol ORAL CONTRAST TYPE: None. CONTRAST: Isovue 370 VOLUME: 100 mL One or more dose reduction techniques were used (e.g., Automated exposure control, adjustment of the mA and/or kV according to patient size, use of iterative reconstruction technique. RADIATION DOSE SUMMARY: CTDlvol: 25 mGy DLP: 700 mGycm COMPARISON: CT chest earlier same day. FINDINGS: Lung bases: See same day CT chest for discussion of thoracic findings. Liver: Markedly enlarged liver secondary to right hepatic lobe simple cyst, measuring at least 17.7 x 14.2 x 16.2 cm (coronal image 48 and sagittal image 53). There is significant mass effect upon the adjacent structures, including elevation of the right hemidiaphragm. Additional small hepatic cysts and hypodensities, too small to characterize but likely cysts. The major portal veins are grossly patent. Minimal biliary ductal dilation, from adjacent cyst. Gallbladder: Grossly unremarkable. Spleen: Normal size. Pancreas: Diffuse fatty atrophy. Adrenals: No left adrenal mass. Nonvisualization of the right adrenal gland secondary to hepatic cyst, however there is no obvious lesion in the right adrenal region. Kidneys: Bilateral renal cysts an additional hypodensities, too small to characterize. Left renal calcification, likely vascular. No hydronephrosis. Bladder: The urinary bladder is mildly distended and unremarkable. Reproductive Organs: Prior hysterectomy. Bowel: The bowel loops are normal in caliber. Trace abdominopelvic ascites. No pneumoperitoneum. No inflammatory mass in the expected region of the appendix. Lymph nodes: Retroperitoneal nodes, likely reactive. Vasculature: Severe mixed atherosclerotic plaque throughout the aortoiliac vessels. Bones/soft tissues: Small right inguinal hernia containing fat and trace ascites. Mild body wall edema. Thoracolumbar spondylosis. Diffuse osseous demineralization. CT/Abdomen/Pelvis W IV Cont ONLY IMPRESSION: 1. No acute abdominopelvic finding. 2. Markedly enlarged liver secondary to massive right hepatic lobe cyst. If pa tient is symptomatic, recommend ultrasound-guided aspiration with possible sclerotherapy. Reading Location: [id number]
[2025-02-01 13:51] LABS: LDH 209 U/L (84-246)
--- NOTE | 2025-02-01 14:43 | PCM.PN.HOSP ---
Reason for Visit Reason for Visit: Shortness of breath Subjective Subjective Initial plan was for discharge today as patient was requiring 2 L of oxygen status post thoracentesis and doing better from a respiratory standpoint however case was discussed with Dr. Butts and he would like to get further imaging and possible aspiration of hepatic cyst. He was consulted and will be placing orders accordingly. Objective Data Objective Data Vital Signs: Vital Signs Temp Pulse Resp BP Pulse Ox O2 Del Method O2 Flow Rate 98.0 F 90 18 132/85 H 94 Nasal Cannula 2 02/01/25 09:58 02/01/25 10:03 02/01/25 09:58 02/01/25 10:03 02/01/25 13:07 02/01/25 13:07 02/01/25 13:07 Oxygen Flow Rate (L/min) 2 Oxygen Delivery Method Nasal Cannula Weight: 61 kg Body Mass Index (BMI) 25.4 Intake & Output: Intake and Output for Last 24 Hours 01/30/25 01/31/25 02/01/25 23:59 23:59 23:59 Intake Total 760 / 760 240 / 240 Output Total 830 / 830 Balance -70 / -70 240 / 240 Lab / Micro Data 02/01/25 04:28 02/01/25 04:28 Labs: Laboratory Results - last 24 hr 01/30/25 : Fluid Glucose 131, Fluid Total Protein 3.5, Fluid LDH 214 01/31/25 14:11: Fluid Source PLEURAL FLUID, Fluid Color YELLOW, Fluid Appearance SL CLDY, Fluid WBC 0.972, Fluid RBC 0.003, Fluid Tot Cell Count 1.014 H, Fld Polynuclear WBCs # 0.107, Fld Polynuclear WBCs % 11.0, Fluid Mononuclear WBCs 0.865, Fld Mononuclear WBCs % 89.0, Fluid Neutrophils 20, Fluid Lymphocytes 67, Fluid Macrophages 5, Fld Mesothelial Cells 7, Fluid Other Cells 1, Fl Pathologist Comment May follow, Fluid Comment 2 SEE COMMENT 02/01/25 04:28: WBC 7.6, RBC 4.03 L, Hgb 10.5 L, Hct 33.8 L, MCV 83.9, MCH 26.1 L, MCHC 31.1 L, RDW Std Deviation 50.6 H, RDW Coeff of Jacquie 16.4 H, Plt Count 271, MPV 9.3, Sodium 139, Potassium 3.6, Chloride 102, Carbon Dioxide 26.4, Anion Gap 10, BUN 14, Creatinine 0.74, Estim Creat Clear Calc 44.65 L, Est GFR (MDRD) Non-Af 81, BUN/Creatinine Ratio 18.5, Glucose 110 H, Calcium 8.3 02/01/25 12:30: Lactate Dehydrogenase 209, Scl-70 Scleroderma Ab TNP Micro: Microbiology 01/31/25 14:11 Fluid - Thoracentesis Fluid Gram Stain - Final 01/31/25 14:11 Fluid - Thoracentesis Fluid Body Fluid Culture - Preliminary No growth-Final to follow Radiography Diagnostic Testing: Radiology Impression Thoracentesis Ultrasound 01/30/25 18:24 IMPRESSION: Successful ultrasound-guided right thoracentesis with removal of 830 cc of donna colored fluid. The patient tolerated the procedure well. No immediate complication seen. Reading Location: [place] [address] 02/01/25 07:16 IMPRESSION: Coronary artery calcification (CAC) is is present Small residual right pleural effusion with compressive atelectasis at the right lung base. Minimal left pleural effusion with mild left basilar atelectasis. Stable multinodular goiter is enlargement of the right lobe of the thyroid with say substernal extension. Reading Location: [place] [address] Abdomen/Pelvis CT 02/01/25 11:55 IMPRESSION: 1. No acute abdominopelvic finding. 2. Markedly enlarged liver secondary to massive right hepatic lobe cyst. If patient is symptomatic, recommend ultrasound-guided aspiration with possible sclerotherapy. Reading Location: [facility] Rhythm Strip Rhythm Strip: Sinus Rhythm Rate: 89 Ectopy: PAC(s) Physical Exam Const alert, oriented x3, no apparent distress, average body habitus and well nourished Constitutional Narrative: Thin, elderly, white female, sitting up in bed, appears comfortable, nontoxic, and nursing at bedside HEENT head/scalp atraumatic and moist oral mucous membranes HEENT Narrative: Mallampati 2, no thrush Head and Scalp: normocephalic Neck supple Neck Narrative: Trachea midline Resp normal respiratory effort, no retractions, no use of accessory muscles and clear to auscultation bilaterally Resp Narrative: Slightly diminished in the right lower lobe but otherwise clear Auscultation: Negative for crackles, rhonchi or wheezes Cardio regular rate, regular rhythm, S1 normal heart sound, S2 normal heart sound, no murmurs, no rub, no gallops and no clicks GI normal to inspection, nondistended, normoactive bowel sounds, soft to palpation and non-tender Extremity no clubbing, cyanosis or edema Extremity Narrative: Pedal and radial pulses are 2+ Neuro oriented x3, moves all extremities and no focal motor deficits Speech: speech normal Psych affect normal Psych Narrative: Pleasant, interacts appropriately Assessment & Plan Assessment/Plan (1) Bilateral pleural effusion: (2) Hypoxia: (3) Acute dyspnea: PLAN: Plan Hypoxia - Improved status post thoracentesis on the right - On 2 L and ambulatory pulse ox was performed patient requires 2 L - Continue incentive spirometry - Continue Acapella Large right pleural effusion/small left pleural effusion - Fluid studies appear to be benign -Patient with no infectious type symptoms -CT done this morning shows resolution of large effusion with only small residual effusion and compressive atelectasis - Patient may need to go home on some low-dose Lasix that she does have some ascites as well is likely related to that large hepatic cyst Large right hepatic cyst - GI called me and requested consult with CT of the abdomen and pelvis -GI consultation in place - Suspect aspiration will be ordered while patient is hospitalized Thyrotoxicosis with multinodular goiter -Patient had her thyroid removed many years ago and was found in October to have a TSH of 0 and recurrence of her multinodular goiter -Now following with endocrinology -Continue methimazole -Continue beta-hans - TSH is low with a normal free T4 and a slightly abnormal free T3 -Patient has upcoming follow-up with Dr. Paris -Biopsy with Dr. Mccormick is pending soon Chronic anemia - Hemoglobin appears to be relatively stable - Continue to monitor -Repeat CBC in a.m. Essential hypertension/hyperlipidemia - Continue home statin - Continue home amlodipine - Continue home metoprolol History of stroke - Continue home aspirin and Plavix Seasonal allergies - Continue home cetirizine Glaucoma - Continue home eyedrops DVT prophylaxis - SCDs CODE STATUS - Full code Charges/Coding Visit Charges Inpatient E&M: 15343 Subs Hosp L2
--- NOTE | 2025-02-01 17:43 | EX.PCM.CON.G ---
HPI Consult Data Date of Consult: 02/01/25 HPI Narrative Reason for Consultation: hepatic cyst HPI Narrative: SAPNA SAUCEDO, is a 84 woman presented with increasing dyspnea over a two-week period and a two-month history of right upper quadrant distension and discomfort. She originally presented to her primary care provider with right upper quadrant pain and an ultrasound of the liver was ordered. It showed a large [address] scan of the abdomen pelvis was ordered that showed again large right hepatic lobe cyst with lateral displacement of the heart. She did not smoke and denied any systemic symptoms of fever, night sweats, weight loss, arthralgia, arthritis or skin rashes. No cardiac, neurological or other gastrointestinal symptoms were reported. She had no past medical history of note and no previous exposure to asbestos, animals or the farming community. She had no history of trauma or recent travel. She did not report any family history of polycystic kidney or liver disease. Except for her brother that does have a history of cyst in his liver. She did not drink any alcohol. An examination revealed a large right pleural effusion, confirmed on X-ray of her chest, and gross hepatomegaly. No other abnormalities were detected. In particular, there was no lymphadenopathy or any evidence of cardiac compromise or decompensated chronic liver disease. Outpatient : laboratory investigations revealed that she had normal renal function with an estimated glomerular filtration rate > 60 mL/min. Her liver function tests showed a slightly raised alkaline phosphatase level of 145 U/L and a slightly low albumin of 29 g/L. Her levels of total bilirubin (12 ?mol/L), alanine transaminase (9 U/L), total protein (57 g/L) and globulin (28 g/L) were all normal. A full blood count demonstrated a slightly raised platelet count of 474 ? 109/L. Her haemoglobin, white cell count differentials and coagulation screen were all entirely normal. Contrast enhanced computer tomography (CT) of her chest, abdomen and pelvis confirmed a large right pleural effusion, with a shift of the mediastinum to the left and a raised right hemidiaphragm. No cystic lesions were identified within the thoracic cavity. There was no evidence of a bronchopulmonary or bronchobiliary fistulae or pulmonary embolism. A polycystic liver with a large cyst measuring 20 ? 21 ? 18 cm was found to be displacing the right hemidiaphragm superiorly and her upper abdominal structures posteromedially. Pleural aspirate was performed on separate occasions and confirmed the effusion as an transudate (with protein values of 3.5 and 2.4 g/L). The pleural fluid pH (8.0), glucose (161 mmol/L), lactate dehydrogenase (214 U/L) and amylase - not performed did not indicate the cause to be due to infection, pancreatitis or an autoimmune condition. Microscopy revealed no organisms, acid fast bacilli, ova, cysts or parasites is pending . The pleural fluid culture for fungi, mycobacterium and bacteria pending. No malignant cells were seen on cytology pending. [facility] Medical History Multinodular goiter Thyrotoxicosis CVA (cerebral vascular accident) Glaucoma Home Medications ?Medication ?Instructions ?Recorded ?Last Taken ?Type aspirin 81 mg tablet,delayed 81 mg PO QDAY 11/07/24 01/30/25 History release (Adult Low Dose Aspirin) cetirizine 10 mg tablet 10 mg PO QDAY PRN allergies 11/07/24 01/30/25 History clopidogrel 75 mg tablet 75 mg PO QDAY 11/07/24 01/30/25 History rosuvastatin 10 mg tablet 10 mg PO QHS 11/07/24 01/29/25 History methimazole 10 mg tablet 10 mg PO QDAY #90 tabs 01/09/25 01/30/25 Rx amlodipine 10 mg tablet 10 mg PO DAILY 01/30/25 01/30/25 History metoprolol tartrate 50 mg tablet 50 mg PO DAILY 01/30/25 01/30/25 History travoprost 0.004 % eye drops 1 drp ophthalmic (eye) QHS GLAUCOMA 01/30/25 01/29/25 History Allergy/AdvReac Type Severity Reaction Status Date / Time Sulfa (Sulfonamide Allergy Mild hives Verified 01/30/25 14:16 Antibiotics) Family History Other Brain tumor Colon cancer Surgical History History of thyroid surgery H/O: hysterectomy Social History household members: spouse housing: house Smoking Status: Never smoker alcohol intake: never substance use type: does not use what type of physical activity do you participate in: walking frequency: daily ROS ROS Narrative General: Denies fever/chills HENT: Denies headache, denies stuffy nose, denies sore throat EYES: Denies changes in vision Resp: Denies cough, increased shortness of breath particularly on exertion over the past couple of weeks Cardiac: Denies chest pain GI: Denies abdominal pain, denies changes in bowel, denies nausea/vomiting : Denies changes in urination Extremity: Some swelling lower extremities mostly in the evening the past week or so MSK: Denies weakness Neuro: Denies any numbness/tingling Heme: Denies any bleeding or bruising Skin: Denies rashes Psychiatric: No complaints voiced Physical Exam Const alert, oriented x3, no apparent distress, average body habitus and well nourished HEENT head/scalp atraumatic and moist oral mucous membranes HEENT Narrative: Mallampati 2, no thrush Head and Scalp: normocephalic Neck supple Neck Narrative: Trachea midline Resp normal respiratory effort, no retractions, no use of accessory muscles and clear to auscultation bilaterally Resp Narrative: Slightly diminished in the right lower lobe but otherwise clear Auscultation: Negative for crackles, rhonchi or wheezes Cardio regular rate, regular rhythm, S1 normal heart sound, S2 normal heart sound, no murmurs, no rub, no gallops and no clicks GI normal to inspection, nondistended, normoactive bowel sounds, soft to palpation and non-tender Extremity no clubbing, cyanosis or edema Extremity Narrative: Pedal and radial pulses are 2+ Neuro oriented x3, moves all extremities and no focal motor deficits Speech: speech normal Psych affect normal Psych Narrative: Pleasant, interacts appropriately Lab / Micro Data 02/01/25 04:28 02/01/25 04:28 Labs: Laboratory Results - last 24 hr 01/30/25 : Fluid Glucose 131, Fluid Total Protein 3.5, Fluid LDH 214 01/31/25 14:11: Fluid Source PLEURAL FLUID, Fluid Color YELLOW, Fluid Appearance SL CLDY, Fluid Neutrophils 20, Fluid Lymphocytes 67, Fluid Macrophages 5, Fld Mesothelial Cells 7, Fluid Other Cells 1, Fl Pathologist Comment May follow, Fluid Comment 2 SEE COMMENT 02/01/25 04:28: WBC 7.6, RBC 4.03 L, Hgb 10.5 L, Hct 33.8 L, MCV 83.9, MCH 26.1 L, MCHC 31.1 L, RDW Std Deviation 50.6 H, RDW Coeff of Jacquie 16.4 H, Plt Count 271, MPV 9.3, Sodium 139, Potassium 3.6, Chloride 102, Carbon Dioxide 26.4, Anion Gap 10, BUN 14, Creatinine 0.74, Estim Creat Clear Calc 44.65 L, Est GFR (MDRD) Non-Af 81, BUN/Creatinine Ratio 18.5, Glucose 110 H, Calcium 8.3 02/01/25 12:30: Lactate Dehydrogenase 209, Scl-70 Scleroderma Ab TNP Micro: Microbiology 01/31/25 14:11 Fluid - Thoracentesis Fluid Gram Stain - Final 01/31/25 14:11 Fluid - Thoracentesis Fluid Body Fluid Culture - Preliminary No growth-Final to follow Rhythm Strip Rhythm Strip: Sinus Rhythm Rate: 89 Ectopy: PAC(s) Imaging Radiology Impression Thoracentesis Ultrasound 01/30/25 18:24 IMPRESSION: Successful ultrasound-guided right thoracentesis with removal of 830 cc of donna colored fluid. The patient tolerated the procedure well. No immediate complication seen. [facility] [address] 02/01/25 07:16 IMPRESSION: Coronary artery calcification (CAC) is is present Small residual right pleural effusion with compressive atelectasis at the right lung base. Minimal left pleural effusion with mild left basilar atelectasis. Stable multinodular goiter is enlargement of the right lobe of the thyroid with say substernal extension. Reading Location: [facility] Abdomen/Pelvis CT 02/01/25 11:55 IMPRESSION: 1. No acute abdominopelvic finding. 2. Markedly enlarged liver secondary to massive right hepatic lobe cyst. If patient is symptomatic, recommend ultrasound-guided aspiration with possible sclerotherapy. Reading Location: [id number] Assessment & Plan Assessment/Plan (1) Bilateral pleural effusion: (2) Hypoxia: (3) Hepatic cyst: PLAN: 84-year-old with past medical history of multinodular goiter, thyrotoxicosis, hypertension who presents with right upper quadrant pain and shortness of breath and discovered to have bilateral pleural effusions along with very large hepatic cysts. There also was some small hepatic cysts and smaller cyst of the kidney. She underwent large-volume paracentesis. Pleural effusion-transudative pleural effusions can result from autoimmune disorders, pancreatitis, rheumatoid arthritis and less likely pulmonary infarction. They also can be secondary to nephrotic syndrome or medications. She is on her regular medicines and his no history of asbestosis and no history of pancreatitis. She also has no history of autoimmune disease. Hydatid disease is a possibility. However, the current analysis of pleural fluid does not seem like a hydatid infection., We will need the liver cyst histology and a positive serum enzyme-linked immunosorbent assay for this to be a possibility. There was no communication between the peritoneal and pleural cavity was found on CT, excluding a fistula and/or diaphragmatic defect, or rupture of a liver and/or hydatid cyst, all of which have been reported as mechanisms for pleural effusions associated with a polycystic liver. I postulate that the recurrent right-sided pleural effusion occurred as a direct consequence of the mass effect of the main hepatic cyst displacing and deforming the right hemidiaphragm. This in turn led to a disruption of the local capillary permeability and pleural inflammation. However that should lead to a persistent exudative effusion. She may need to be evaluated by interventional radiology and surgery to see if she is a candidate for percutaneous drainage versus surgical removal. Surgical intervention typically involves cyst aspiration and sclerosis with fenestration and possible hepatic resection. She would like to avoid that due to her age. She is still having difficulty breathing so I think the cyst is still having some mass effect on her respiratory system. Autoimmune workup is also pending along with QuantiFERON gold for tuberculosis and serum hydatid antibody testing. Charges/Coding Visit Charges Inpatient E&M: 44988 Init Hosp L3
[2025-02-01] MEDS: Latanoprost 0.005% 1 Bottle 1 DRP OPHTHALMIC (21:23)
[2025-02-01] MEDS: Atorvastatin Calcium 20 MG Tablet PO (21:24)
[2025-02-02 03:15] VITALS: BP 140/79; PULSE 79; RESP 18; TEMP 36.4; O2SAT 92
[2025-02-02 05:21] VITALS: BMI 24.7
[2025-02-02 05:38] LABS: Hematocrit 31.5 % (37-47); Mean Corp Hgb Conc 31.7 g/dL (32-36); Mean Corpuscular Hgb 26.5 pg (27.0-32.0); Mean Corpuscular Volume 83.3 fL (81-99); Mean Platelet Vol. 9.3 fl (6.2-12.0); Platelet Count 258 K/mm3 (150-450); RBC Distribution Width CV 16.7 % (11.6-14.6); Red Blood Count 3.78 M/mm3 (4.2-5.4); White Blood Count 5.9 K/mm3 (4.4-11.0)
[2025-02-02 06:23] LABS: ALB/GLOB Ratio 0.8 RATIO (0.9-2.4); AST(SGOT) 21 U/L (<=31); Alanine Aminotransfer ALT/SGPT 24 U/L (<=34); Albumin, Serum 2.6 g/dL (3.4-4.8); Alkaline Phosphatase 102 U/L (35-104); Anion Gap 10 (5-15); BUN 12 mg/dL (4-19); BUN/Creat Ratio 19.6 RATIO (10-20); Carbon Dioxide 26.7 mmol/L (21.0-32.0); Chloride 102 mmol/L (98-108); Creatinine, Serum 0.61 mg/dL (0.70-1.20); EST Glomerular Filtration Rate 89 (>60); Estimated Creatinine Clearance 44.14 ml/min (50-250); Globulin 3.3 g/dL (2.2-4.2); Glucose 93 mg/dL (70-99); Sodium Level 139 mmol/L (133-145); Total Bilirubin 0.38 mg/dL (0.00-1.30)
[2025-02-02 07:46] VITALS: O2SAT 92
--- NOTE | 2025-02-02 08:20 | CT_ITS ---
PROCEDURE: CHEST WITHOUT CONTRAST 02/02/2025 REASON FOR EXAM: PLEURAL EFFUSION TECHNIQUE: Chest CT without contrast. Coronal and Sagittal reconstruction series were provided. One or more dose reduction techniques were used (e.g., Automated exposure control, adjustment of the mA and/or kV according to patient size, use of iterative reconstruction technique RADIATION DOSE SUMMARY: CTDlvol: 7.24 mGy DLP: 209.76 mGycm COMPARISON: Comparison is made with prior study dated February 01, 2025. FINDINGS: Hardware: EKG electrodes are seen. Once again, there is diffuse heterogeneous enlargement of the right lobe of the thyroid with substernal extension. This is unchanged. Lymph nodes: Small mediastinal lymph nodes. Most likely reactive in nature. Heart and Vasculature: Cardiomegaly. No pericardial effusion. Coronary Artery Calcifications: Present Lungs and Airways: Slight increase in the right pleural effusion with compressive atelectasis at the right lung base. Mild atelectasis at the left lung base. Upper Abdomen: Stable large right hepatic cyst. Bones: Degenerative changes of the thoracic spine. CT/Chest without Contrast IMPRESSION: Coronary artery calcification (CAC) is is present Slight increase in the right pleural effusion with compressive atelectasis at t he right lung base as well as atelectasis at the left lung base. Reading Location: [place] [id number]
[2025-02-02 09:10] VITALS: BP 134/82; PULSE 93; RESP 18; TEMP 36.3; O2SAT 93
[2025-02-02 09:28] VITALS: BP 134/82; PULSE 93
[2025-02-02] MEDS: Methimazole 5 MG Tablet 10 MG PO (09:28)
[2025-02-02] MEDS: amLODIPine 10 MG Tablet PO (09:28)
[2025-02-02] MEDS: Furosemide 20 MG Tablet PO (09:28)
[2025-02-02] MEDS: Metoprolol Tartrate 25 MG Tablet PO (09:28)
[2025-02-02] MEDS: Aspirin E.C. 81 MG Tablet PO (10:34)
[2025-02-02] MEDS: Clopidogrel Bisulfate 75 MG Tablet PO (10:34)
[2025-02-02 10:35] VITALS: O2SAT 88; O2SAT 90; O2SAT 93
--- NOTE | 2025-02-02 12:27 | PCM.DC.SUM ---
Providers Date of Admission: 01/30/25 Date of Discharge: 02/02/25 Primary Care Physician: Dr. Fidel Davila MD Consultations 02/01/25 11:38 Consult: Gastroenterology Routine Consulting Provider: [facility] Reason for Consult: Hepatic cyst EMERGENT Consult: No MD Notified: Yes Date Notified: 02/01/25 Time Notified: 11:43 Method of Notification: Text Reason For Visit: HYPOXIA & PLEURAL EFFUSIONS Diagnosis Discharge Diagnosis (1) Bilateral pleural effusion: Status: Acute Code(s): J90 - Pleural effusion, not elsewhere classified (2) Hypoxia: Status: Acute Code(s): R09.02 - Hypoxemia (3) Hepatic cyst: Status: Acute Code(s): K76.89 - Other specified diseases of liver Medications at Discharge Home Medications aspirin 81 mg tablet,delayed release (Adult Low Dose Aspirin) 81 mg PO QDAY 11/07/24 cetirizine 10 mg tablet 10 mg PO QDAY PRN allergies 11/07/24 clopidogrel 75 mg tablet 75 mg PO QDAY 11/07/24 Held on 02/02/25. Instructions: Until instructed to restart rosuvastatin 10 mg tablet 10 mg PO QHS 11/07/24 methimazole 10 mg tablet 10 mg PO QDAY #90 tabs 01/09/25 amlodipine 10 mg tablet 10 mg PO DAILY 01/30/25 metoprolol tartrate 50 mg tablet 50 mg PO DAILY 01/30/25 travoprost 0.004 % eye drops 1 drp ophthalmic (eye) QHS GLAUCOMA 01/30/25 acetaminophen 325 mg tablet 650 mg (2 x 325 mg) PO Q6H PRN PRN Pain 1-10 Or Fever >100.7 #0 tabs 02/02/25 furosemide 20 mg tablet 20 mg PO DAILY #30 tabs 02/02/25 Hospital Course Procedures 2-D Echocardiogram, EKG, Thoracentesis and - (CT chest/CT abdomen and pelvis/chest x-ray) Summary of Care Provided Minutes Spent on Discharge: 41 Hospital Course: Mrs. Dial is an 84-year-old white female who presented to the emergency department at [facility] on 01/30/2025 with a chief complaint of shortness of breath that had been worsening over about the 2 weeks prior to presentation and was significantly worse with exertion. She was incidentally found to have a large right hepatic cyst that was pushing up on her right side of the diaphragm and they thought initially this was the reason for her shortness of breath. She was referred to GI it was in their office and found to be hypoxic so she was sent to the emergency department. Oxygen saturations on presentation were 88% on room air. Patient is not typically oxygen dependent baseline has no previously diagnosed lung pathology. Vital signs on presentation showed a temperature of 96.7, heart rate 92, respiratory rate 22, blood pressure is 124/71 and pulse ox was 88% on room air. She was placed on 3 L nasal cannula pulse ox improved to 93 to 98%. CBC showed a chronic stable anemia with a hemoglobin between 10 and 11 but was otherwise unremarkable. D-dimer was elevated at 3.43. Chemistry panel was unremarkable. Initial troponin was 22 and BNP was 629. Patient had no cardiac symptoms. She has known hypothyroidism and her TSH was low at 0.031 with a normal free T4. She is following up with Dr. Paris as an outpatient. CTA of the chest was performed and showed no large right pleural effusion with a very large hepatic cyst and no tiny left pleural effusion. She was admitted the hospital and placed telemetry. Thoracentesis was ordered and performed on 01/30/25 for the removal of 830 cc. Studies were benign thus far but cytology was pending at the time of discharge. With regards to this large hepatic cyst GI was consulted and obtained a CT of her abdomen pelvis. That just showed a very large hepatic cyst with 2 other isolated smaller cysts. After consideration, Dr. Butts would like to refer her to tertiary center for draining of this. I did discuss with family that her pleural effusion may reaccumulate to the point she needs repeat thoracentesis and we do have follow-up with pulmonary medicine on Wednesday for chest x-ray. They can order an outpatient thoracentesis if needed. Given that, we will hold her Plavix for now and continue her aspirin. This was discussed with family as well. Ambulatory pulse ox was performed and suggested the patient needs 2 L of oxygen at rest and with exertion. I have reviewed the oxygen testing, and this patient qualifies for the home equipment and portability. The patient is mobile in the home and the community. She does have a pulse oximeter at home and will periodically check her oxygen levels. I did discuss with her fraction saturations drop below 89% consistently she may need to increase her oxygen to 3 L. We have also arranged for GI follow-up next week with Dr. Butts so this hepatic cyst can be pursued more aggressively. She is to follow-up with her primary care physician as needed. I have asked, given the fact we started her on some low-dose Lasix, to contact her primary care physician and obtain an order for basic metabolic profile to be done early next week to check her renal function and electrolytes. Patient and family voiced understanding. She was able to be discharged home in stable condition on 02/02/2025. Multiple autoimmune labs were pending at the time of discharge as well as cytology for her thoracentesis. Discharge diagnoses: Hypoxia Right large pleural effusion Small left pleural effusion Large right hepatic cyst History of thyrotoxicosis with multinodular goiter Essential hypertension Hyperlipidemia History of stroke Seasonal allergies Glaucoma Physical Exam Const alert, oriented x3, no apparent distress, average body habitus, no limitations and well nourished Constitutional Narrative: Thin, elderly, white female, sitting up in bed, appears comfortable, nontoxic, daughter at bedside General Appearance: cooperative, comfortable, well kempt and well developed HEENT normocephalic, head/scalp atraumatic and moist oral mucous membranes Eyes conjunctivae normal Eyes Narrative: No scleral icterus Neck supple Neck Narrative: Trachea midline Resp normal respiratory effort, no retractions, no use of accessory muscles and clear to auscultation bilaterally Resp Narrative: Diminished in right lower lobe, on 2 L of oxygen appears comfortable Auscultation: Negative for crackles, rhonchi or wheezes Cardio regular rate, regular rhythm, S1 normal heart sound, S2 normal heart sound, no murmurs, no rub, no gallops and no clicks GI normal to inspection, nondistended, normoactive bowel sounds, soft to palpation and non-tender GI Narrative: Hepatomegaly noted Extremity no clubbing, cyanosis or edema Extremity Narrative: Pedal and radial pulses are 2+ Skin skin turgor normal, no jaundice, no petechiae and no mottling Neuro oriented x3, moves all extremities and no focal motor deficits Speech: speech normal Psych affect normal Psych Narrative: Pleasant, interacts appropriately Weight / BMI Weight Weight: 59.5 kg Body Mass Index (BMI) 24.7 ABG / Lab / Microbiology Data 02/02/25 04:57 02/02/25 04:57 Laboratory: Laboratory Results - last 24 hr 02/01/25 12:30: Lactate Dehydrogenase 209, Scl-70 Scleroderma Ab TNP 02/02/25 04:57: WBC 5.9, RBC 3.78 L, Hgb 10.0 L, Hct 31.5 L, MCV 83.3, MCH 26.5 L, MCHC 31.7 L, RDW Std Deviation 51.0 H, RDW Coeff of Jacquie 16.7 H, Plt Count 258, MPV 9.3, Sodium 139, Potassium 4.0, Chloride 102, Carbon Dioxide 26.7, Anion Gap 10, BUN 12, Creatinine 0.61 L, Estim Creat Clear Calc 44.14 L, Est GFR (MDRD) Non-Af 89, BUN/Creatinine Ratio 19.6, Glucose 93, Calcium 8.0, Total Bilirubin 0.38, AST 21, ALT 24, Alkaline Phosphatase 102, Total Protein 6.0, Albumin 2.6 L, Globulin 3.3, Albumin/Globulin Ratio 0.8 L Microbiology: Microbiology 01/31/25 14:11 Fluid - Thoracentesis Fluid Gram Stain - Final 01/31/25 14:11 Fluid - Thoracentesis Fluid Body Fluid Culture - Preliminary No growth-Final to follow 01/31/25 14:11 Fluid - Thoracentesis Fluid Anaerobic Culture - Preliminary No growth in 48 hours. Radiography Diagnostic Testing: Radiology Impression Abdomen/Pelvis CT 02/01/25 11:55 IMPRESSION: 1. No acute abdominopelvic finding. 2. Markedly enlarged liver secondary to massive right hepatic lobe cyst. If patient is symptomatic, recommend ultrasound-guided aspiration with possible sclerotherapy. Reading Location: [facility] Chest CT 02/02/25 08:20 IMPRESSION: Coronary artery calcification (CAC) is is present Slight increase in the right pleural effusion with compressive atelectasis at the right lung base as well as atelectasis at the left lung base. Reading Location: [facility] D/C Instructions Discharge Diet: Low fat / Low cholesterol Discharge Activity: Return to Normal Activity DC O2, CPAP, BIPAP Needs Home O2 Discharge instructions: Yes Type of respiratory needs?: Oxygen Oxygen frequency: Continuous Continuous oxygen liters per minute: 2 DC home with Oxygen: No Meaningful Use Info Meaningful Use Meaningful Use Diagnoses (Choose all that apply): None applicable Ischemic Stroke Statin Dosing Therapy Reference: STATIN DOSE THERAPY REFERENCE: * Patients > 75 years receive moderate or high dose statin therapy. * Patients 75 years or YOUNGER should receive HIGH intensity statin dose unless contraindicated. You will be required to document reason for non-treatment if statin daily dose does not meet guidelines. HIGH DOSE STATIN THERAPY DAILY Atorvastatin > than or = to 40 mg Rosuvastatin > than or = to 20 mg Amlodipine + Atorvastatin > than or = to 2.5/40 mg Ezetimibe + Simvastatin 10/80 mg Simvastatin 80mg Discharge Plan Admission Admit Date/Time: 01/30/25 17:55 Primary Reason for Your Visit: Shortness of breath Attending Provider: Ramonita Sandoval Primary Care Provider: Fidel Davila Consulting Providers: Katherine Madrigal Instructions Patient Instructions: TOÑO RN Thoracentesis Dc Additional Instructions / Restrictions: 1. You were found to have a large right pleural effusion (fluid compressing lung). Almost 900 cc of fluid was removed during her hospitalization. I suspect this is related to the cyst in your liver. Cytology was still pending at the time of discharge and I asked that you please follow-up as noted below with pulmonary medicine early next week so they can assess for recurrence and schedule you for an outpatient thoracentesis if needed. 2. Please hold your Plavix until instructed to restart so that if you do need a repeat thoracentesis it can be performed next week. 3. We did add low-dose Lasix so I do ask that you call your primary care physician and ask that a basic metabolic profile be done in the next 7 to 10 days to recheck your kidney function and your electrolytes. 4. Please check your pulse ox periodically and if your sats drop below 89% and stay there increase your oxygen to 3 L. Currently you require 2 L at rest and with exertion Discharge Orders/Prescriptions Prescriptions: New acetaminophen 325 mg Tablet 650 mg PO Q6H PRN PRN (Reason: Pain 1-10 Or Fever >100.7) Qty: 0 0RF furosemide 20 mg Tablet 20 mg PO DAILY Qty: 30 0RF Continued cetirizine 10 mg tablet 10 mg PO QDAY PRN (Reason: allergies) rosuvastatin 10 mg tablet 10 mg PO QHS aspirin [Adult Low Dose Aspirin] 81 mg tablet,delayed release (DR/EC) 81 mg PO QDAY methimazole 10 mg tablet 10 mg PO QDAY Qty: 90 2RF travoprost 0.004 % drops 1 drp ophthalmic (eye) QHS Patient Comments: BOTH EYES amlodipine 10 mg tablet 10 mg PO DAILY metoprolol tartrate 50 mg tablet 50 mg PO DAILY Patient Comments: [NO ORIGINAL SIG] Held clopidogrel 75 mg tablet 75 mg PO QDAY Hold Instructions: Until instructed to restart Referrals / Follow Up: Mariano Davila DO [Med Staff - Active Staff] - 02/05/25 11:15 am (Appointment is with Kylah Alicea N.P.) Joey Butts DO [Med Staff - Active Staff] - 02/07/25 10:00 am (Appointment is with Ely Quick N.P.) Fidel Davila MD [Primary Care Provider] - See Referral Note (As needed) Disposition Disposition (needs filled in before D/C Order can be placed): Home, Self Care Charges/Coding Visit Charges Inpatient E&M: 52967 Disch Hosp >30min
[2025-02-02 13:18] LABS: Pathologist Comment/Body Fluid Reviewed
[2025-02-02 13:39] VITALS: BP 134/82; PULSE 93; RESP 18; TEMP 36.3; O2SAT 93
--- NOTE | 2025-02-02 13:47 | CASEMGMT ---
FORREST REYES NOTE: Discharge order is in. FORREST REYES to room. Pt sitting up in chair, dtr @ bedside. Pt states she feels ready to discharge home. Portable O2 tank in room from [facility] and they are aware to call [facility] before leaving the hospital to arrange home O2 delivery today. Questions answered re: symptoms to watch for and what to monitor and when to return to ER. Made aware of appts scheduled w/Dr Sandra Davila and Dr Butts. Pt is not homebound/does not qualify for [facility]. Pt denies needing any OP therapy. Made aware to f/u with PCP if she changes her mind in the future. Pt any daughter deny having any further discharge questions/needs/concerns. Kamla RODRIGUEZ RN CM
--- NOTE | 2025-02-02 17:21 | PCM.PN.BLA ---
Progress Note Patient is breathing a little better today. Her weight is down about 12 pounds since being in hospital. Physical Exam Const alert, oriented x3, no apparent distress, average body habitus, no limitations and well nourished Constitutional Narrative: Thin, elderly, white female, sitting up in bed, appears comfortable, nontoxic, daughter at bedside General Appearance: cooperative, comfortable, well kempt and well developed HEENT normocephalic, head/scalp atraumatic and moist oral mucous membranes Eyes conjunctivae normal Eyes Narrative: No scleral icterus Neck supple Neck Narrative: Trachea midline Resp normal respiratory effort, no retractions, no use of accessory muscles and clear to auscultation bilaterally Resp Narrative: Diminished in right lower lobe, on 2 L of oxygen appears comfortable Auscultation: Negative for crackles, rhonchi or wheezes Cardio regular rate, regular rhythm, S1 normal heart sound, S2 normal heart sound, no murmurs, no rub, no gallops and no clicks GI normal to inspection, nondistended, normoactive bowel sounds, soft to palpation and non-tender GI Narrative: Hepatomegaly noted Extremity no clubbing, cyanosis or edema Extremity Narrative: Pedal and radial pulses are 2+ Skin skin turgor normal, no jaundice, no petechiae and no mottling Neuro oriented x3, moves all extremities and no focal motor deficits Speech: speech normal Psych affect normal Psych Narrative: Pleasant, interacts appropriately Assessment & Plan Assessment/Plan (1) Bilateral pleural effusion: (2) Hypoxia: (3) Hepatic cyst: PLAN: 84-year-old with past medical history of multinodular goiter, thyrotoxicosis, hypertension who presents with right upper quadrant pain and shortness of breath and discovered to have bilateral pleural effusions along with very large hepatic cysts. There also was some small hepatic cysts and smaller cyst of the kidney. She underwent large-volume paracentesis. Pleural effusion-transudative pleural effusions can result from autoimmune disorders, pancreatitis, rheumatoid arthritis and less likely pulmonary infarction. They also can be secondary to nephrotic syndrome or medications. She is on her regular medicines and his no history of asbestosis and no history of pancreatitis. She also has no history of autoimmune disease. Hydatid disease is a possibility. However, the current analysis of pleural fluid does not seem like a hydatid infection., We will need the liver cyst histology and a positive serum enzyme-linked immunosorbent assay for this to be a possibility. There was no communication between the peritoneal and pleural cavity was found on CT, excluding a fistula and/or diaphragmatic defect, or rupture of a liver and/or hydatid cyst, all of which have been reported as mechanisms for pleural effusions associated with a polycystic liver. I postulate that the recurrent right-sided pleural effusion occurred as a direct consequence of the mass effect of the main hepatic cyst displacing and deforming the right hemidiaphragm. This in turn led to a disruption of the local capillary permeability and pleural inflammation. However that should lead to a persistent exudative effusion. She may need to be evaluated by interventional radiology and surgery to see if she is a candidate for percutaneous drainage versus surgical removal. Surgical intervention typically involves cyst aspiration and sclerosis with fenestration and possible hepatic resection. She would like to avoid that due to her age. She is still having difficulty breathing so I think the cyst is still having some mass effect on her respiratory system. Autoimmune workup is also pending along with QuantiFERON gold for tuberculosis and serum hydatid antibody testing. 02/02/2025- Repeat CT scan of the chest displays -coronary artery calcification (CAC) is is present Slight increase in the right pleural effusion with compressive atelectasis at the right lung base as well as atelectasis at the left lung base. Patient has been started on diuretics and will need follow-up imaging and likely repeat paracentesis. Unknown etiology to bilateral pleural effusions at this time. Visit Charges Inpatient E&M: 11895 Subs Hosp L3
[2025-02-05 14:08] LABS: Anti-Centromere B Ab <0.2 AI (0.0-0.9); Anti-Chromatin <0.2 AI (0.0-0.9); Anti-Jo <0.2 AI (0.0-0.9); Anti-Scleroderma-70 AB <0.2 AI (0.0-0.9); Anti-dsDNA Ab <1 IU/mL (0-9); RNP Ab <0.2 AI (0.0-0.9); SJOGREN'S Anti-SS-A test < 0.2 AI (0.0-0.9); SJOGREN'S Anti-SS-B test < 0.2 AI (0.0-0.9); Smith Ab <0.2 AI (0.0-0.9)
[2025-02-05 14:08] LABS: CCP IgG Antibodies 15 units (0-19)
[2025-02-06 05:06] LABS: QNTFERON TB Nil Value 0.03 IU/mL (.); QNTFERON TB1+ Ag Value 0.04 IU/mL (.); QNTFERON TB2+ Ag Value 0.03 IU/mL (.); QNTIFERON TB Positive Criteria Negative (Negative)
[2025-02-06 15:08] LABS: AFP, Tumor Marker 6.2 ng/mL (0.0-8.7); Albumin 2.7 g/dL (2.9-4.4); Alpha-1-Globulins 0.5 g/dL (0.0-0.4); Alpha-2-Globulins 0.9 g/dL (0.4-1.0); Carbohydrate AG 19-9 447 U/mL (0-35); Carcinoembryonic Antigen 0.9 ng/mL (0.0-4.7); Cytoplasmic Ab (C-ANCA) <1:20 titer (Neg:<1:20); Gamma Globulin 1.3 g/dL (0.4-1.8); Immunoglobulin A 399 mg/dL (64-422); Immunoglobulin G 958 mg/dL (586-1602); Immunoglobulin M 495 mg/dL (26-217); Perinuclear Ab (P-ANCA) <1:20 titer (Neg:<1:20)
== END 2025-02-02 14:39 | disposition home or self-care (01) | DRG 187 ==
LOC: ED 17:04 → PCU 17:31
PROVIDERS: Internal Medicine; Internal Medicine Gastroenterology; Admitting Provider Internal Medicine; Emergency Provider Emergency Medicine; PCP Family Medicine; Visit Provider Internal Medicine
DX: J90 Pleural effusion, not elsewhere classified (principal); R18.8 Other ascites; K76.89 Other specified diseases of liver; E05.10 Thyrotoxicosis with toxic single thyroid nodule without thyrotoxic crisis or storm; I10 Essential (primary) hypertension; E78.5 Hyperlipidemia, unspecified; J30.2 Other seasonal allergic rhinitis; Z79.02 Long term (current) use of antithrombotics/antiplatelets; Z79.2 Long term (current) use of antibiotics; Z90.710 Acquired absence of both cervix and uterus; R09.02 Hypoxemia; Z86.73 Personal history of transient ischemic attack (TIA), and cerebral infarction without residual deficits; H40.9 Unspecified glaucoma; N28.1 Cyst of kidney, acquired; Z79.82 Long term (current) use of aspirin; Z79.899 Other long term (current) drug therapy
CPT/HCPCS: 32555; 36415; 71046; 71250; 71275; 74177; 80048; 80053; 82105; 82378; 82784; 82945; 83615; 83735; 83880; 84100; 84155; 84157; 84165; 84439; 84443; 84481; 84484; 85025; 85027; 85049; 85379; 85610; 86037; 86200; 86225; 86235; 86301; 86334; 86480; 87070; 87075; 87186; 87205; 88108; 88305; 88313; 89050; 93005; 93306; 94668; 99284; Q9957; Q9967; A4216; J1940

== ENCOUNTER → 2025-01-30 | Outpatient (CLI) | payer MEDICARE, SELFPAY ==
--- NOTE | 2025-01-30 11:20 | RAD_ITS ---
EXAM: XR Chest, 2 Views CLINICAL INDICATION: HEPATIC CYST DIPLACING HEART TECHNIQUE: Frontal and lateral views of the chest. COMPARISON: No relevant prior studies available. FINDINGS: LUNGS AND PLEURAL SPACES: Bibasilar atelectasis or pneumonia. Bilateral pleural effusions. HEART: Cardiomegaly with mild congestion. MEDIASTINUM: Unremarkable. Normal mediastinal contour. BONES/JOINTS: Unremarkable. No acute fracture. RAD/Chest PA and Lateral IMPRESSION: 1. Bibasilar atelectasis or pneumonia. 2. Cardiomegaly with mild congestion. 3. Bilateral pleural effusions. Reading [facility]
[2025-01-30 11:45] LABS: International Normalized Ratio 1.1; Prothrombin Time (Protime)PT. 14.8 SECONDS (11.7-14.9)
[2025-01-30 11:47] LABS: Platelet Count 368 K/mm3 (150-450)
[2025-01-30 12:19] LABS: ALB/GLOB Ratio 0.8 RATIO (0.9-2.4); AST(SGOT) 29 U/L (<=31); Alanine Aminotransfer ALT/SGPT 34 U/L (<=34); Albumin, Serum 3.3 g/dL (3.4-4.8); Alkaline Phosphatase 148 U/L (35-104); Anion Gap 13 (5-15); BUN 14 mg/dL (4-19); BUN/Creat Ratio 17.8 RATIO (10-20); Calcium,Total 8.8 mg/dL (7.6-11.0); Carbon Dioxide 24.5 mmol/L (21.0-32.0); Chloride 101 mmol/L (98-108); Creatinine, Serum 0.76 mg/dL (0.70-1.20); EST Glomerular Filtration Rate 78 (>60); Glucose 124 mg/dL (70-99); Potassium 3.5 mmol/L (3.3-5.1); Protein, Total 7.4 g/dL (5.9-8.4); Sodium Level 139 mmol/L (133-145); Total Bilirubin 0.46 mg/dL (0.00-1.30)
[2025-01-30 15:15] LABS: Pro- Brain NATRIURETIC PEPTIDE 636 pg/mL (<=1800)
== END | disposition home or self-care (01) ==
PROVIDERS: PCP Family Medicine; Referring Provider Student in an Organized Health Care Education/Training Program; Visit Provider Student in an Organized Health Care Education/Training Program
DX: R06.02 Shortness of breath (principal); K76.89 Other specified diseases of liver
CPT/HCPCS: 36415; 71046; 80053; 83880; 85049; 85610

== ENCOUNTER → 2025-02-07 | Outpatient (CLI) | payer MEDICARE, SELFPAY ==
--- NOTE | 2025-02-07 13:40 | US_ITS ---
PROCEDURE: CHEST 02/07/2025 REASON FOR EXAM: RIGHT PLEURAL EFFUSION TECHNIQUE: Multiple longitudinal and transverse ultrasound images of the chest were obtained. . US/Chest IMPRESSION: Small right pleural effusion not amenable to thoracentesis.. Reading Location: [id number]
== END | disposition home or self-care (01) ==
LOC: US 13:39
PROVIDERS: PCP Family Medicine; Referring Provider Nurse Practitioner Acute Care; Visit Provider Nurse Practitioner Acute Care
DX: J90 Pleural effusion, not elsewhere classified (principal)
CPT/HCPCS: 32555; 76604

== ENCOUNTER → 2025-05-15 | Outpatient (CLI) | payer MEDICARE, SELFPAY | END | disposition home or self-care (01) | LOC: SL 09:08 | PROVIDERS: PCP Family Medicine; Referring Provider Nurse Practitioner Acute Care; Visit Provider Nurse Practitioner Acute Care | DX: R09.02 Hypoxemia (principal) | CPT/HCPCS: 94762 ==

== ENCOUNTER → 2025-05-22 | Outpatient (CLI) | payer MEDICARE, SELFPAY ==
[2025-05-22 12:07] LABS: Free T3 2.7 pg/mL (2.18-3.98)
== END | disposition home or self-care (01) ==
LOC: LAB 10:22
PROVIDERS: PCP Family Medicine; Referring Provider Internal Medicine Endocrinology, Diabetes & Metabolism; Visit Provider Internal Medicine Endocrinology, Diabetes & Metabolism
DX: E05.90 Thyrotoxicosis, unspecified without thyrotoxic crisis or storm (principal); E04.2 Nontoxic multinodular goiter
CPT/HCPCS: 36415; 84439; 84443; 84481; 86376